=== PATIENT | female | born 1945 | race Caucasian/White ===

== ENCOUNTER 2019-02-18 18:04 | Emergency (ER) | payer MEDICARE, OTHER, BC ==
[2019-02-18 20:01] VITALS: BP 153/70
--- NOTE | 2019-02-18 20:43 | ED ---
GI/ HPI - HPI Summary HPI Summary: 73 yr old female with several days of urinary urgency and dysuria. Onset while in rehab after a right ankle fracture. Symptoms are moderate. No other complaints. Denies fever, chills, back pain. - History of Current Complaint Chief Complaint: UCGU Time Seen by Provider: 02/18/19 20:05 Stated Complaint: URINARAY Pain Intensity: 7 - Allergy/Home Medications Allergies/Adverse Reactions: Allergies Allergy/AdvReac Type Severity Reaction Status Date / Time ampicillin Allergy Hives Verified 02/18/19 19:55 cefaclor [From Ceclor] Allergy Hives Verified 02/18/19 19:55 prochlorperazine Allergy See Comment Verified 02/18/19 19:55 [From Compazine] tetracycline Allergy Hives Verified 02/18/19 19:55 Home Medications: Home Medications Levothyroxine TAB* [Synthroid 100 MCG TAB*] 1 tab DAILY 02/18/19 [History Confirmed 02/18/19] Rivaroxaban [Xarelto] 1 tab DAILY 02/18/19 [History Confirmed 02/18/19] oxyCODONE TAB* [Roxycodone TAB 5 mg*] 1 tab TID PRN 02/18/19 [History Confirmed 02/18/19] PMH/Surg Hx/FS Hx/Imm Hx Endocrine/Hematology History: Reports: Hx Diabetes - DIET CONTROLLED Infectious Disease History: No Infectious Disease History: Denies: Traveled Outside the [place] in Last 30 Days - Family History Known Family History: Positive: None - Social History Lives: With Family Alcohol Use: None Substance Use Type: Reports: None Smoking Status (MU): Never Smoked Tobacco Review of Systems Constitutional: Negative Positive: dysuria, urgency All Other Systems Reviewed And Are Negative: Yes Physical Exam Triage Information Reviewed: Yes Vital Signs On Initial Exam: Initial Vitals Temp Pulse Resp BP Pulse Ox 97.5 F 100 18 153/70 99 02/18/19 19:57 02/18/19 19:57 02/18/19 19:57 02/18/19 19:57 02/18/19 19:57 Vital Signs Reviewed: Yes Appearance: Positive: Well-Appearing, No Pain Distress Skin: Positive: Warm, Skin Color Reflects Adequate Perfusion Head/Face: Positive: Normal Head/Face Inspection Eyes: Positive: EOMI ENT: Positive: Pharynx normal. Negative: Nasal congestion, Nasal drainage Neck: Positive: Nontender Respiratory/Lung Sounds: Positive: Clear to Auscultation, Breath Sounds Present Cardiovascular: Positive: RRR. Negative: Murmur Abdomen Description: Negative: CVA Tenderness (R), CVA Tenderness (L) Musculoskeletal: Positive: Other - right lower leg in cast Neurological: Positive: Sensory/Motor Intact, Alert, Oriented to Person Place, Time, CN Intact II-III Psychiatric: Positive: Normal Diagnostics - Vital Signs Vital Signs Temp Pulse Resp BP Pulse Ox 02/18/19 19:57 97.5 F 100 18 153/70 99 - Laboratory Lab Results: Lab Results 02/18/19 Range/Units 20:12 POC Urine Color Other POC Urine Clarity Cloudy POC Urine pH 5.5 (5-9) POC Ur Specif [place] 1.025 (1.010-1.030) POC Urine Protein 1+ A (Negative) POC Ur Glucose (UA) Negative (Negative) POC Urine Ketones Negative (Negative) POC Urine Blood 1+ A (Negative) POC Urine Nitrite Negative (Negative) POC Urine Bilirubin Negative (Negative) POC Urine Urobilinogen 0.2 (Negative) POC U Leukocyte Esteras 2+ A (Negative) Lab Statement: Any lab studies that have been ordered have been reviewed, and results considered in the medical decision making process. GIGU Course/Dx - Course Course Of Treatment: 73 yr old with UTI. She requests cipro and pyridium. - Diagnoses Provider Diagnoses: UTI (urinary tract infection), Hypertension Discharge - Sign-Out/Discharge Documenting (check all that apply): Patient Departure All imaging exams completed and their final reports reviewed: No Studies - Discharge Plan Condition: Good Disposition: HOME Prescriptions: Ciprofloxacin TAB* [Cipro 500 MG TAB*] 500 mg PO BID #10 tab Phenazopyridine TAB* [Pyridium 100 mg TAB*] 100 mg PO TID #6 tab Patient Education Materials: Urinary Tract Infection in Women (ED), Hypertension (ED) Referrals: [facility] [[facility]] No Primary Care Phys,NOPCP [Primary Care Provider] - - Billing Disposition and Condition Condition: GOOD Disposition: Home
== END 2019-02-18 20:39 | disposition home or self-care (01) ==
LOC: EDBD 18:04 → UCCORT 18:04
DX: N39.0 Urinary tract infection, site not specified (principal); I10 Essential (primary) hypertension; E11.9 Type 2 diabetes mellitus without complications; Z88.0 Allergy status to penicillin; Z88.1 Allergy status to other antibiotic agents; Z88.8 Allergy status to other drugs, medicaments and biological substances
CPT/HCPCS: 81003; 87077; 87086; 87186; 99202; G0463